=== PATIENT | male | born 1975 | race American Indian/Alaskan Native ===

== ENCOUNTER 2023-05-24 05:48 | Day surgery (SDC) | payer OTHER ==
[2023-05-16 16:43] VITALS: BP 117/87
[~2023-05-24] VITALS: Ht 175.3 cm; Wt 112.3 kg
[~2023-05-24 05:48] MED LIST: ASPIRIN81 MG PO; COZAAR25 MG PO; JARDIANCE25 MG PO; METFORMIN HCL500 MG PO; MIDAZOLAM HCL 5 MG/5 ML VIAL IV PRN; MILK THISTLE175 MG PO; OZEMPIC1 MG/0.71; fentaNYL citrate 100 MCG/2 ML VIAL IV PRN
[2023-05-24 06:07] VITALS: BP 130/90
[2023-05-24] MEDS ORDERED: LIPITOR40 MG PO (06:13)
[2023-05-24] MEDS ORDERED: propofoL 200 MG/20 ML VIAL ONE (06:43)
[2023-05-24] MEDS ORDERED: LIDOCAINE HCL 1% 5 ML SDV INJ ONE (07:00)
[2023-05-24] MEDS ORDERED: LACTATED RINGER'S 1,000 ML IV SCH (07:00)
[2023-05-24] MEDS ORDERED: IBLOOD GLUCOSE TEST STRIP 1 EA TEST VI PRN (07:00)
--- NOTE | 2023-05-24 08:48 | NUR ---
05/24/23 0848 Sheets,Mayuri 0820 PT ARRIVED TO PACU ON 10L VIA MASK WITH ORAL AIRWAY IN PLACE. RESP EVEN AND UNLABORED. 0822 PT STARTS COUGHING AND GAGGING ON AIRWAY, AIRWAY REMOVED AND JAW THRUST USED TO MAINTAIN AIRWAY. PT EYES REMAIN CLOSED AND HOB INCREASED. 0828 PT WAKES EASILY AND O2 MASK REMOVED. PT REORIENTED TO PACU AND ENCOURAGED TO PASS GAS AND PT ABLE TO DO SO. 0835 PLAN OF CARE DISUCSSED.
--- NOTE | 2023-05-24 10:27 | OR ---
[facility] [address], [place] [address] Signed DATE OF OPERATION: 05/24/2023 SURGEON: Hawa Meng MD PREOPERATIVE DIAGNOSIS: Screening. PREOPERATIVE DIAGNOSES: 1. A 5 mm polyp at 10 cm in the rectum. 2. Minimal internal hemorrhoids. PROCEDURE: Colonoscopy with hot biopsy. ESTIMATED BLOOD LOSS: None. INDICATIONS: Bolivar is a 47-year-old obese diabetic gentleman, asked to see me for his initial screening colonoscopy. He has no lower GI complaints. There is no family history of colon cancer or polyps. He does have a very full round face with a heavy neck, chest and abdomen. Also, he is noncompliant from a medical standpoint. He said he is fully aware of that. His last hemoglobin A1c was around 10. He said he is extremely sensitive to fentanyl, tramadol, and Flexeril. He said the last time he had surgery, he was very slow to wake up and had severe headaches for several days. He said he tries his best to avoid narcotics. Consequently, we did ask for monitored anesthesia care today with propofol infusion. He took an amazing amount of propofol and was still moving on the table and had to have boluses of propofol. In the office, I gave Bolivar and his a pamphlet on colonoscopy. We had reviewed the nature of the test. There is risk including, but not limited to gas bloating, crampy abdominal pain, bleeding, perforation requiring surgery, and missed diagnosis. We also reviewed the need for IV conscious sedation for the monitored anesthesia care. He had expressed understanding and wished to proceed. DESCRIPTION OF PROCEDURE: Bolivar was taken into our endoscopy suite and placed in the left lateral decubitus position. He was given monitored anesthesia care with propofol infusion per our nurse airplane pilot helper. He had actually took several boluses throughout the procedure. A digital rectal exam was performed. He had good sphincter tone. There were no external hemorrhoids. No masses. The adult colonoscope was introduced and advanced all around Electronically Signed By: HAWA MENG MD 05/24/23 1027 PATIENT NAME: BOLIVAR MANZANO OPERATIVE REPORT DATE OF : 77 REPORT #: [id number] PHYSICIAN: HAWA MENG MD PCP: ANDREW [facility] REPORT IS CONFIDENTIAL AND NOT TO BE RELEASED WITHOUT AUTHORIZATION [facility] [address], [place] [address] Signed into the cecum under direct visualization of the camera. He did take extra propofol to get around to the cecum despite the fact that he is technically easy to pass the scope. His prep was good. We could easily see the appendiceal orifice and the ileocecal valve. The scope was then slowly withdrawn. There was no diverticulosis. He had one 5 mm polyp at 10 cm in the rectum. It was easily removed with the hot biopsy forceps. Upon retroflexion of the scope, he does have some minimal internal hemorrhoid tissue. After this, the gas was suctioned out and the colonoscope removed. Bolivar overall tolerated the procedure quite well. RECOMMENDATIONS: I will see Bolivar back in my office in 1 to 2 weeks for followup. Hawa Meng MD ALB/MODL /[id number] cc: MD Andrew Slaughter NP Copies: HAWA MENG MD ~ Electronically Signed By: HAWA MENG MD 05/24/23 1027 PATIENT NAME: BOLIVAR MANZANO OPERATIVE REPORT DATE OF : 77 REPORT #: [id number] PHYSICIAN: HAWA MENG MD PCP: ANDREW [facility] REPORT IS CONFIDENTIAL AND NOT TO BE RELEASED WITHOUT AUTHORIZATION
--- NOTE | 2023-05-25 11:57 | EKG ---
[facility] [address] [facility] [place], [place] [address] Signed Normal sinus rhythm Normal ECG No previous ECGs available Confirmed by Fani Ramos MD ([id number]) on 05/25/2023 11:56:56 AM Electronically Signed By: FANI RAMOS 05/25/23 1157 PATIENT NAME: TAVO MANZANOVernell GARCÍA Electrocardiogram DATE OF : 77 PHYSICIAN: FANI RAMOS REPORT #: [id number] REPORT IS CONFIDENTIAL AND NOT TO BE RELEASED WITHOUT AUTHORIZATION
--- NOTE | 2023-05-27 09:22 | PATH ---
[facility] [address] [place], [place] [address] Signed SPECIMEN(S): A RECTAL POLYP, 10 CM SPECIMEN SOURCE: A. RECTAL POLYP, 10 CM CLINICAL HISTORY: Screening, rectal polyp, internal hemorrhoids FINAL PATHOLOGIC DIAGNOSIS: Rectum, 10 cm, polypectomy: - Hyperplastic polyp BRP MICROSCOPIC EXAMINATION: Histologic sections of all submitted blocks are examined by light microscopy. These findings, together with the gross examination, support the pathologic diagnosis. GROSS DESCRIPTION: The specimen, labeled and designated "Adis rectal polyp at 10 cm," is received in formalin and consists of two peralta soft tissue fragments, ranging from 0.2-0.3 cm. Entirely submitted in (A1). VB (under the direct supervision of a pathologist) The Gross Description was prepared using a voice recognition system. The report was reviewed for accuracy; however, sound-alike word errors, addition and/or deletions may occur. If there is any question about this report, please contact Client Services. ADDITIONAL NOTES: Immunohistochemical and/or in situ hybridization studies if performed in this case included appropriate positive controls that reacted as expected. This test was developed and its performance characteristics determined by [facility]. It has not been cleared or approved by the U.S. Food and Drug Administration. The FDA has determined that such clearance or approval is not necessary. This test is used for clinical purposes. It should not be regarded as investigational or for research. [facility] is certified under the Clinical Laboratory Improvement Amendments of 1988 (CLIA) as qualified to perform high complexity clinical laboratory testing. PATIENT NAME: ANASTACIO MANZANO PATHOLOGY DATE OF : 77 REPORT #: [id number] PHYSICIAN: PAU COTTO PCP: ANDRE[facility] REPORT IS CONFIDENTIAL AND NOT TO BE RELEASED WITHOUT AUTHORIZATION [place] [id number] [place] [place], [place] [address] Signed PERFORMING LABORATORY: Technical component was performed by [facility], [address] [place] [address] (CLIA# [id number]). [facility] [address] [address] [id number] Diagnostician: Reid Garner MD Pathologist Electronically Signed 05/27/2023 Copies: ~ PATIENT NAME: ANASTACIO MANZANO PATHOLOGY DATE OF : 77 REPORT #: [id number] PHYSICIAN: PAU COTTO PCP: ANDREW [facility] REPORT IS CONFIDENTIAL AND NOT TO BE RELEASED WITHOUT AUTHORIZATION
== END 2023-05-24 09:10 | disposition home or self-care (01) ==
LOC: OPS 05:48 → DS 05:48 → OPS 07:30 → DS 08:15 → OPS 08:15
PROVIDERS: ATTEND Colon & Rectal Surgery
PROC: 0DBP8ZZ Excision of Rectum, Via Natural or Artificial Opening Endoscopic (ICD-10-PCS; principal; 2023-05-24 07:30)
DX: Z12.11 Encounter for screening for malignant neoplasm of colon (principal); K62.1 Rectal polyp; K64.8 Other hemorrhoids; E11.9 Type 2 diabetes mellitus without complications; I10 Essential (primary) hypertension; Z79.84 Long term (current) use of oral hypoglycemic drugs; E66.9 Obesity, unspecified; E78.5 Hyperlipidemia, unspecified; Z68.35 Body mass index [BMI] 35.0-35.9, adult
CPT/HCPCS: 93005; 93010; J2704; J7121

== ENCOUNTER 2023-11-27 15:16 | Emergency (ER) | payer OTHER ==
[~2023-11-27] VITALS: Ht 175.3 cm; Wt 105.9 kg
[~2023-11-27 15:16] MED LIST changes: +LIPITOR40 MG PO; -MIDAZOLAM HCL 5 MG/5 ML VIAL IV PRN; -fentaNYL citrate 100 MCG/2 ML VIAL IV PRN
[2023-11-27] MEDS ORDERED: VITAMIN D350 MC3 PO (15:35)
[2023-11-27] MEDS ORDERED: HYDROCODON-ACE1 EA10 PO (15:58)
[2023-11-27] MEDS ORDERED: CYCLOBENZAPRINE10 MG PO (15:58)
[2023-11-27] MEDS ORDERED: CYCLOBENZAPRINE HCL 10 MG TAB PO ONE (16:00)
[2023-11-27 16:22] VITALS: BP 118/76
== END 2023-11-27 16:22 | disposition home or self-care (01) ==
LOC: ED 15:16
DX: M54.50 Low back pain, unspecified (principal); E11.9 Type 2 diabetes mellitus without complications; X50.0XXA Overexertion from strenuous movement or load, initial encounter; Z79.84 Long term (current) use of oral hypoglycemic drugs; Z79.899 Other long term (current) drug therapy
CPT/HCPCS: 99283

== ENCOUNTER 2023-12-05 06:35 | Emergency (ER) | payer OTHER ==
[~2023-12-05] VITALS: Ht 175.3 cm; Wt 105.5 kg
[~2023-12-05 06:35] MED LIST changes: +CYCLOBENZAPRINE10 MG PO; +HYDROCODON-ACE1 EA10 PO; +VITAMIN D350 MC3 PO
--- OUTSIDE RECORDS SUMMARY | 2023-12-05 06:42 | XMS ---
PreManage Notification: ANASTACIO MANZANO [employer] Machinery Rigger Events No recent Security Events currently on file CRITERIA MET - [facility] - 2 Visits in 30 Days CARE PROVIDERS There are no care providers on record at this time. Janell has no Care Guidelines for this patient. Kevin VISIT COUNT (12 MO.) 3 [facility] TOTAL 3 NOTE: Visits indicate total known visits. [place] (12 MO.) 12/05/2023 06:[address] 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
[2023-12-05 07:38] VITALS: BP 145/83
== END 2023-12-05 07:38 | disposition home or self-care (01) ==
LOC: ED 06:35
DX: M54.9 Dorsalgia, unspecified (principal); X50.0XXA Overexertion from strenuous movement or load, initial encounter; E11.9 Type 2 diabetes mellitus without complications; Z79.899 Other long term (current) drug therapy; Z79.84 Long term (current) use of oral hypoglycemic drugs; Z79.82 Long term (current) use of aspirin
CPT/HCPCS: 99283